=== PATIENT | female | born 1930 | race Caucasian/White ===

== ENCOUNTER 2016-04-26 13:36 | Outpatient (CLI) | payer BC, OTHER ==
[~2016-04-26 13:36] MED LIST: ACC10 PO; DIAZ5TAB4 PO; LEVO125T PO; ORPH1TAB PO
== END 2016-04-26 20:12 | disposition home or self-care (01) ==
LOC: SMA 13:36
DX: R92.8 Other abnormal and inconclusive findings on diagnostic imaging of breast (principal); Z85.3 Personal history of malignant neoplasm of breast; Z90.11 Acquired absence of right breast and nipple
CPT/HCPCS: G0206 ×2

== ENCOUNTER 2017-04-30 09:16 | Outpatient (CLI) | payer BC | END 2017-04-30 21:50 | disposition home or self-care (01) | LOC: SMA 09:16 | DX: Z12.31 Encounter for screening mammogram for malignant neoplasm of breast (principal); I10 Essential (primary) hypertension; E03.9 Hypothyroidism, unspecified; H40.9 Unspecified glaucoma; E78.5 Hyperlipidemia, unspecified; Z90.11 Acquired absence of right breast and nipple | CPT/HCPCS: 77067 ==

== ENCOUNTER 2020-04-06 20:25 | Inpatient (IN) | payer OTHER, BC ==
[~2020-04-06] VITALS: Ht 170.2 cm; Wt 89.1 kg
[2020-04-06 20:25] VITALS: BP_SYST 142
[~2020-04-06 20:25] MED LIST changes: +ALEN70TA3 PO; +ASCO500T20 PO; +ASPI-524 PO; +CALC-886 PO; +DIAZ5TAB PO; -DIAZ5TAB4 PO; +FERR236T3 PO; +LEVO-100 PO; -LEVO125T PO; +LIP10 PO; -ORPH1TAB PO; +PYRI100T10 PO
[2020-04-06] MEDS ORDERED: LORA-258 PO (20:36)
[2020-04-06] MEDS ORDERED: CALC-884 PO (20:40)
[2020-04-06] MEDS ORDERED: BISA10SU61 RC (20:40)
[2020-04-06] MEDS ORDERED: NACL 0.9% 1,000 ML IV ONE (20:45)
[2020-04-06] MEDS ORDERED: DILTIAZEM HCL 60 MG TABLET PO ONE (20:45)
[2020-04-06] MEDS ORDERED: DILTIAZEM HCL 25 MG/5 ML VIAL IVP ONE (20:45)
[2020-04-06] MEDS ORDERED: MIDO5TAB4 PO (20:58)
[2020-04-06] MEDS ORDERED: CEFT1VIA IV (20:58)
[2020-04-06] MEDS ORDERED: ALEN70TA3 PO (20:58)
[2020-04-06] MEDS ORDERED: TRAM50TA2 PO (20:58)
[2020-04-06] MEDS ORDERED: MELA3CAP2 PO (20:58)
[2020-04-06] MEDS ORDERED: TRAV5DRO2 OP (20:58)
[2020-04-06] MEDS ORDERED: SUCR1TAB31 PO (20:58)
[2020-04-06] MEDS ORDERED: FERR-31 PO (20:58)
[2020-04-06] MEDS ORDERED: LEVO-100 PO (20:58)
[2020-04-06] MEDS ORDERED: SER25 PO (20:58)
[2020-04-06] MEDS ORDERED: ASCO-339 PO (20:58)
[2020-04-06] MEDS ORDERED: SODI15OR6 PO (20:58)
[2020-04-06] MEDS ORDERED: FLOR.1 PO (20:58)
[2020-04-06] MEDS ORDERED: PRO40 PO (20:58)
[2020-04-06] MEDS ORDERED: ACET325T53 PO (20:58)
[2020-04-06] MEDS ORDERED: [UNRECOGNIZED DRUG - OTHER] IV (20:58)
[2020-04-06] MEDS ORDERED: MOM PO (20:58)
[2020-04-06] MEDS ORDERED: MEGE400O PO (20:58)
[2020-04-06] MEDS ORDERED: DOCU-144 PO (20:58)
[2020-04-06] MEDS ORDERED: DONE5TAB26 PO (20:58)
[2020-04-06] MEDS ORDERED: ZOLP5TAB7 PO (20:58)
[2020-04-06 21:39] LABS: INR 1.2 (0.8-1.2); PROTHROMBIN TIME 11.8 SECS (9.5-12.5)
[2020-04-06 21:49] LABS: RED BLOOD CELL COUNT(AUTO) 3.57 MIL/uL (4.2-6.2); WHITE BLOOD COUNT (AUTO) 7.6 K/uL (4.8-10.8)
[2020-04-06 21:50] LABS: EOSINOPHILS % (AUTO) 1.1 % (0.0-4.0); HEMATOCRIT 36.5 % (36-48); HEMOGLOBIN 11.6 g/dL (12.0-16.0); LYMPHOCYTES % (AUTO) 11.9 % (20.5-51.5); MEAN CORPUSCULAR HEMOGLOBIN 33 pg (27-31); MEAN CORPUSCULAR HGB CONC 32 % (32-36); MEAN CORPUSCULAR VOLUME 102 fL (79.0-98.0); MONOCYTES % (AUTO) 6.8 % (1.7-9.3); PLATELET COUNT (AUTO) 204 K/uL (130-430); RED CELL DISTRIBUTION WIDTH 17.4 % (9.0-15.0)
[2020-04-06 21:51] LABS: BASOPHILS % (AUTO) 0.2 % (0.0-2.0); EOSINOPHILS # (AUTO) 0.1 K/uL (0.0-0.4); LYMPHOCYTES # (AUTO) 0.9 K/uL (1.0-5.5); MONOCYTES # (AUTO) 0.5 K/uL (0.0-1.0); NEUTROPHILS # (AUTO) 6.1 K/uL (1.8-7.7)
[2020-04-06 22:08] LABS: ANION GAP 13 (5-15); CALCIUM 7.5 mg/dL (8.4-11.0); CHLORIDE 111 mmol/L (98-107); GLUCOSE 103 mg/dL (70-99); SODIUM SERUM 146 mmol/L (136-145)
[2020-04-06 22:12] LABS: ALANINE AMINOTRANSFERASE 92 U/L (12-78); ASPARTATE AMINOTRANSFERASE 92 U/L (10-37); CREATININE 3.02 mg/dL (0.55-1.30); TOTAL BILIRUBIN 0.6 mg/dL (0.0-1.0); UREA NITROGEN, BLOOD 114 mg/dL (8-21)
[2020-04-06 22:13] LABS: ALBUMIN 2.3 g/dL (3.4-4.8)
[2020-04-06] MEDS: NACL 0.9% 1,000 ML IV SCH (22:45)
[2020-04-07 00:30] VITALS: BP_SYST 118
[2020-04-07 02:15] VITALS: BP_SYST 118
[2020-04-07 04:33] LABS: BILIRUBIN,URINE NEGATIVE (NEGATIVE); BLOOD, URINE NEGATIVE (NEGATIVE); CLARITY/URINE CLEAR (CLEAR); COLOR,URINE YELLOW (YELLOW); GLUCOSE,URINE NEGATIVE (NEGATIVE); KETONES,URINE NEGATIVE (NEGATIVE); LEUKOCYTE ESTERASE ,URINE NEGATIVE (NEGATIVE); NITRITE, URINE NEGATIVE (NEGATIVE); PH,URINE 5.5 (5.0-8.0); PROTEIN URINE 1+ (NEGATIVE); UROBILINOGEN,URINE 0.2 (0.2-1.0)
[2020-04-07 07:02] LABS: BASOPHILS % (AUTO) 0.3 % (0.0-2.0); EOSINOPHILS # (AUTO) 0.1 K/uL (0.0-0.4); EOSINOPHILS % (AUTO) 0.7 % (0.0-4.0); HEMATOCRIT 32.6 % (36-48); HEMOGLOBIN 10.6 g/dL (12.0-16.0); LYMPHOCYTES # (AUTO) 0.8 K/uL (1.0-5.5); LYMPHOCYTES % (AUTO) 9.2 % (20.5-51.5); MEAN CORPUSCULAR HEMOGLOBIN 33 pg (27-31); MEAN CORPUSCULAR HGB CONC 33 % (32-36); MEAN CORPUSCULAR VOLUME 100 fL (79.0-98.0); MONOCYTES # (AUTO) 0.6 K/uL (0.0-1.0); MONOCYTES % (AUTO) 6.9 % (1.7-9.3); NEUTROPHILS # (AUTO) 6.9 K/uL (1.8-7.7); NEUTROPHILS % (AUTO) 82.9 % (40.0-70.0); PLATELET COUNT (AUTO) 183 K/uL (130-430); RED BLOOD CELL COUNT(AUTO) 3.27 MIL/uL (4.2-6.2); RED CELL DISTRIBUTION WIDTH 17.3 % (9.0-15.0); WHITE BLOOD COUNT (AUTO) 8.3 K/uL (4.8-10.8)
[2020-04-07 08:00] VITALS: BP_SYST 112
[2020-04-07 08:01] LABS: ANION GAP 12 (5-15); CALCIUM 7.3 mg/dL (8.4-11.0); CHLORIDE 112 mmol/L (98-107); CREATININE 2.66 mg/dL (0.55-1.30); GLUCOSE 82 mg/dL (70-99); POTASSIUM 4.3 mmol/L (3.5-5.1); SODIUM SERUM 147 mmol/L (136-145)
[2020-04-07 08:09] LABS: UREA NITROGEN, BLOOD 108 mg/dL (8-21)
[2020-04-07] MEDS ORDERED: POTASSIUM CHLORIDE 20 MEQ TAB.PRT.SR PO PRN (08:45)
[2020-04-07] MEDS ORDERED: DOCUSATE SODIUM 100 MG CAPSULE PO PRN (08:45)
[2020-04-07] MEDS ORDERED: LORazepam 2 MG/ML VIAL IVP PRN (08:45)
[2020-04-07] MEDS ORDERED: MAGNESIUM SULFATE 50 ML IV PRN (08:45)
[2020-04-07] MEDS ORDERED: MUPIROCIN 2% TOPICAL OINTMENT 22 GM NS PRN (08:45)
[2020-04-07] MEDS ORDERED: AZITHROMYCIN 500 MG in NS 250 ML IV ONE (08:45)
[2020-04-07] MEDS ORDERED: ACETAMINOPHEN 325 MG TABLET PO PRN ×2 (08:45)
[2020-04-07] MEDS ORDERED: FLUDROCORTISONE ACETATE 0.1 MG TABLET( FLORINEF) PO SCH (09:00)
[2020-04-07] MEDS ORDERED: DOCUSATE SODIUM 100 MG CAPSULE PO ONE (09:00)
[2020-04-07] MEDS ORDERED: cefTRIAXone 1 GM in D5W 50 ML IV SCH (09:00)
[2020-04-07] MEDS ORDERED: METOPROLOL TARTRATE 25 MG TABLET PO SCH (09:00)
[2020-04-07] MEDS ORDERED: HEPARIN SODIUM,PORCINE 5,000 UNITS/ML VIAL SUBCUT SCH ×2 (09:00)
[2020-04-07] MEDS ORDERED: LEVOTHYROXINE SODIUM 0.1 MG TABLET PO ONE (09:15)
[2020-04-07] MEDS ORDERED: AMIODARONE HCL 200 MG TABLET PO ONE (10:30)
[2020-04-07] MEDS ORDERED: NS 500 ML IV ONE (10:45)
[2020-04-07 11:24] VITALS: BP_SYST 106
[2020-04-07] MEDS: NACL 0.9% 1,000 ML IV SCH (11:44)
[2020-04-07] MEDS ORDERED: DOCUSATE SODIUM 100 MG CAPSULE PO SCH (21:00)
[2020-04-07] MEDS ORDERED: QUEtiapine FUMARATE 25 MG TABLET PO SCH (21:00)
[2020-04-07] MEDS ORDERED: AMIODARONE HCL 200 MG TABLET PO SCH (21:00)
[2020-04-07] MEDS ORDERED: LATANOPROST 2.5 ML DROPS (XALATAN) OP SCH (21:00)
[2020-04-08] MEDS ORDERED: LEVOTHYROXINE SODIUM 0.1 MG TABLET PO SCH (07:00)
[2020-04-08] MEDS ORDERED: AZITHROMYCIN 250 MG in NS 250 ML IV SCH (09:00)
== END 2020-04-07 14:04 | DRG 177 ==
LOC: SED 20:25 → STU 22:28
PROVIDERS: ADMIT General Practice; ATTEND General Practice
PROC: 5A12012 Performance of Cardiac Output, Single, Manual (ICD-10-PCS; principal; 2020-04-07)
DX: J69.0 Pneumonitis due to inhalation of food and vomit (principal); N17.0 Acute kidney failure with tubular necrosis; K72.00 Acute and subacute hepatic failure without coma; E44.0 Moderate protein-calorie malnutrition; E87.2 Acidosis; E87.0 Hyperosmolality and hypernatremia; I46.9 Cardiac arrest, cause unspecified; Z66 Do not resuscitate; R62.7 Adult failure to thrive; E03.9 Hypothyroidism, unspecified; E78.5 Hyperlipidemia, unspecified; F02.80 Dementia in other diseases classified elsewhere, unspecified severity, without behavioral disturbance, psychotic disturbance, mood disturbance, and anxiety; G30.9 Alzheimer's disease, unspecified; G62.9 Polyneuropathy, unspecified; I12.9 Hypertensive chronic kidney disease with stage 1 through stage 4 chronic kidney disease, or unspecified chronic kidney disease; I25.10 Atherosclerotic heart disease of native coronary artery without angina pectoris; E56.9 Vitamin deficiency, unspecified; G47.00 Insomnia, unspecified; N18.9 Chronic kidney disease, unspecified; K21.9 Gastro-esophageal reflux disease without esophagitis; I95.9 Hypotension, unspecified; I48.91 Unspecified atrial fibrillation; R74.01 Elevation of levels of liver transaminase levels; Z20.822 Contact with and (suspected) exposure to COVID-19; I35.0 Nonrheumatic aortic (valve) stenosis; M81.0 Age-related osteoporosis without current pathological fracture; R29.6 Repeated falls; Z85.3 Personal history of malignant neoplasm of breast; Z85.828 Personal history of other malignant neoplasm of skin; Z74.01 Bed confinement status; Z68.30 Body mass index [BMI] 30.0-30.9, adult; Z85.850 Personal history of malignant neoplasm of thyroid; Z90.11 Acquired absence of right breast and nipple; Z92.21 Personal history of antineoplastic chemotherapy; Z79.1 Long term (current) use of non-steroidal anti-inflammatories (NSAID); Z79.899 Other long term (current) drug therapy; Z79.82 Long term (current) use of aspirin; Z88.5 Allergy status to narcotic agent; Z88.8 Allergy status to other drugs, medicaments and biological substances; Z88.0 Allergy status to penicillin
CPT/HCPCS: 36415; 70450-TC; 71045; 76376; 76770; 80048; 80053; 81003; 83036; 83605; 83880; 84484; 85025; 85610-TC; 85730-TC; 87081; 87086; 92950; 93005; 96374; 99291; G0378; J0456; J0696; J1644; J3490; J7050; J7060